=== PATIENT | male | born 1995 | race Caucasian/White ===

== ENCOUNTER 2019-03-21 23:02 | Emergency (ER) | payer SELFPAY ==
[~2019-03-21] VITALS: Ht 165.1 cm; Wt 81.9 kg
[2019-03-21 23:05] VITALS: BP 127/76
--- NOTE | 2019-03-21 23:21 | NUR ---
STERNAL PAIN S/P TC X 1530. PT ACTING APPROPRIATLY, SPEAKING IN CLEAR AND COMPLETE SENTENCES. BREATHING EQUAL AND UNLABORED. 04/09 PAIN TO STERNUM. DENIES N/V. PENDING ERMD EVAL. SAFETY PRECAUTIONS IN PLACE. +[employer] DEPLOYMENT +SEATBELT NO LOC.
[2019-03-21] MEDS ORDERED: IBUPROFEN 800 MG TAB PO ONE (23:25)
[2019-03-22 00:36] VITALS: BP 127/76
--- NOTE | 2019-03-22 00:36 | NUR ---
Patient discharged with v/s stable. Written and verbal after care instructions given and explained. Patient alert, oriented and verbalized understanding of instructions. Ambulatory with steady gait. All questions addressed prior to discharge. ID band removed. Patient advised to follow up with PMD. Rx of IBUPROFEN WAS given. Patient educated on indication of medication including possible reaction and side effects. Opportunity to ask questions provided and answered.
== END 2019-03-22 00:36 | disposition home or self-care (01) ==
LOC: MED 23:02
DX: S20.219A Contusion of unspecified front wall of thorax, initial encounter (principal); V89.2XXA Person injured in unspecified motor-vehicle accident, traffic, initial encounter; Y93.89 Activity, other specified; Y92.89 Other specified places as the place of occurrence of the external cause; Y99.8 Other external cause status
CPT/HCPCS: 71045; 99283; Q0092

== ENCOUNTER 2020-12-30 12:56 | Emergency (ER) | payer BC ==
[~2020-12-30] VITALS: Ht 170.2 cm; Wt 76.2 kg
[2020-12-30 13:11] VITALS: BP 143/85
--- NOTE | 2020-12-30 13:19 | NUR ---
Ervin escobar in [facility] - 12/30/20 at 1321 by MED1 FLACO
--- NOTE | 2020-12-30 13:21 | NUR ---
PT AMB TO BED 8
--- NOTE | 2020-12-30 13:25 | NUR ---
25 YO M BIB SELF FOR C/C OF NONRAD 2/10 INTERMITTENT CHEST PAIN SINCE SUNDAY. PT STATES IT FEELS LIKE "ITS CONSTRICTING AND TIGHT." PT ALSO REPORTS INTERMITTENT SOB AT REST, DIZZINESS, AND BLURRY VISION. PT DENIES N/V/D, FEVER/CHILLS/COUGH. DENIES OTC MEDS FOR PAIN. BED LOCKED AND IN LOWEST POSITION. SIDE RAILS X1. MED HX: GASTRITIS
--- NOTE | 2020-12-30 13:40 | NUR ---
RAD AT BEDSIDE
--- NOTE | 2020-12-30 13:40 | NUR ---
EKG AT BEDSIDE
[2020-12-30 14:45] VITALS: BP 121/67
--- NOTE | 2020-12-30 14:45 | NUR ---
Patient discharged with v/s stable. Written and verbal after care instructions given and explained. Patient verbalized understanding. Ambulatory with steady gait. All questions addressed prior to discharge. Advised to follow up with PMD.
== END 2020-12-30 14:45 | disposition home or self-care (01) ==
LOC: MED 12:56
DX: R07.9 Chest pain, unspecified (principal); F17.210 Nicotine dependence, cigarettes, uncomplicated
CPT/HCPCS: 71045; 93005; 99283